=== PATIENT | female | born 1975 | race Caucasian/White ===

== ENCOUNTER 2021-12-12 07:33 | Emergency (ER) | payer MEDICAID, OTHER ==
[~2021-12-12] VITALS: Ht 177.8 cm; Wt 61.2 kg
[2021-12-12 07:36] VITALS: BP 155/87
[2021-12-12] MEDS ORDERED: IBUP600T27 PO ×2 (08:45→09:52)
[2021-12-12] MEDS ORDERED: AMOX-277 PO ×2 (08:45→09:52)
== END 2021-12-12 10:28 | disposition home or self-care (01) ==
LOC: ER 07:33
DX: H66.91 Otitis media, unspecified, right ear (principal)

== ENCOUNTER 2022-04-19 07:09 | Emergency (ER) | payer OTHER ==
[~2022-04-19] VITALS: Ht 177.8 cm; Wt 135.0 kg
[~2022-04-19 07:09] MED LIST: AMOX-277 PO; IBUP600T27 PO
[2022-04-19 08:42] VITALS: BP 98/47
[2022-04-19] MEDS ORDERED: AMOX-277 PO (09:17)
[2022-04-19] MEDS ORDERED: IBUP800T27 PO (09:17)
== END 2022-04-19 09:21 | disposition home or self-care (01) ==
LOC: ER 07:09
DX: H66.92 Otitis media, unspecified, left ear (principal)

== ENCOUNTER 2022-05-17 08:17 | Emergency (ER) | payer OTHER ==
[~2022-05-17 08:17] MED LIST changes: +IBUP800T27 PO
[2022-05-17 08:59] VITALS: BP 142/89
[2022-05-17] MEDS ORDERED: CLIN300C8 PO (10:28)
[2022-05-17] MEDS ORDERED: CIPR1SUS8 OT (10:28)
== END 2022-05-17 10:46 | disposition home or self-care (01) ==
LOC: ER 08:17
DX: H66.93 Otitis media, unspecified, bilateral (principal)